=== PATIENT | male | born 1945 | race Caucasian/White ===

== ENCOUNTER → 2018-03-26 10:01 | Outpatient (CLI) | payer MEDICARE, OTHER, SELFPAY ==
[2018-03-26 10:36] LABS: Absolute Basophil Count 0.03 k/cumm (0.0-0.2); Absolute Eosinophil Count 0.16 k/cumm (0.0-0.7); Absolute Lymphocyte Count 0.76 k/cumm (1.2-3.4); Absolute Neutrophil Count 1.89 k/cumm (1.2-6.7); Eosinophils % 5.1; HGB 15.2 g/dL (13.5-17.5); Lymphocytes % 24.2; Mean Corp. HGB Concentration 33.8 g/dL (32.0-36.0); Mean Corpuscular Hemoglobin 30.6 pg (27.0-33.0); Mean Corpuscular Volume 90.5 fL (80-95); Mean Platelet Volume 9.2 fL (8.0-11.0); Monocytes % 9.6; Neutrophils % 60.1; Platelet Count 268 x1000/uL (130-400); RBC 4.97 m/cumm (4.50-6.00); White Blood Cell Count 3.14 k/cumm (4.4-10.8)
[2018-03-26 10:51] LABS: ALT 31 U/L (12-78); AST 19 U/L (15-37); Albumin 3.9 g/dL (3.4-5.0); Alkaline Phosphatase 112 U/L (46-116); BUN 19 mg/dL (7-18); Bilirubin, Total 0.5 mg/dL (0.2-1.0); CREATININE 0.91 mg/dL (0.70-1.30); Calcium 9.1 mg/dL (8.5-10.1); Chloride 102 mmol/L (98-107); Glucose 95 mg/dL (70-100); Potassium 4.6 mmol/L (3.5-5.1); Sodium 136 mmol/L (136-145); Total Protein 7.5 g/dL (6.4-8.2)
[2018-03-27 09:36] LABS: PSA, Diagnostic 60.6 ng/ml (0-6.5)
[2018-03-29 10:17] LABS: Testosterone, Total <7.0 ng/dL (240-950)
== END ==
PROVIDERS: PCP Family Medicine; Visit Provider Internal Medicine
DX: C61 Malignant neoplasm of prostate (principal)
CPT/HCPCS: 36415; 80053; 84403; 84153; 85025

== ENCOUNTER 2018-05-01 09:12 | Outpatient (CLI) | payer MEDICARE, OTHER, SELFPAY ==
[2018-05-01 09:43] LABS: Abs Immature Grans 0.01 k/cumm (0.0-0.09); Absolute Basophil Count 0.03 k/cumm (0.0-0.2); Absolute Eosinophil Count 0.13 k/cumm (0.0-0.7); Absolute Lymphocyte Count 0.45 k/cumm (1.2-3.4); Absolute Monocyte Count 0.24 k/cumm (0.11-0.7); Absolute Neutrophil Count 2.08 k/cumm (1.2-6.7); Eosinophils % 4.4; HCT 43.9 % (40.0-50.0); HGB 14.5 g/dL (13.5-17.5); Immature Grans % 0.3; Lymphocytes % 15.3; Mean Corpuscular Hemoglobin 30.5 pg (27.0-33.0); Mean Corpuscular Volume 92.4 fL (80-95); Mean Platelet Volume 8.8 fL (8.0-11.0); Monocytes % 8.2; Neutrophils % 70.8; Platelet Count 290 x1000/uL (130-400); RBC 4.75 m/cumm (4.50-6.00); RBC Distribution Width 15.7 % (11.8-14.1); White Blood Cell Count 2.94 k/cumm (4.4-10.8)
[2018-05-01 09:53] LABS: ALT 27 U/L (12-78); AST 19 U/L (15-37); Albumin 3.5 g/dL (3.4-5.0); Alkaline Phosphatase 97 U/L (46-116); Anion Gap 5.4 mmol/L (3-11); BUN 21 mg/dL (7-18); Bilirubin, Total 0.4 mg/dL (0.2-1.0); CO2 30.6 mmol/L (21.0-32.0); CREATININE 0.87 mg/dL (0.70-1.30); Calcium 9.2 mg/dL (8.5-10.1); Chloride 105 mmol/L (98-107); Glucose 123 mg/dL (70-100); Potassium 4.4 mmol/L (3.5-5.1); Sodium 141 mmol/L (136-145); Total Protein 7.1 g/dL (6.4-8.2)
[2018-05-02 09:31] LABS: PSA, Diagnostic 90.1 ng/ml (0-6.5)
[2018-05-04 01:17] LABS: Testosterone, Total <7.0 ng/dL (240-950)
== END 2018-05-01 09:32 ==
PROVIDERS: PCP Family Medicine; Visit Provider Internal Medicine
DX: C61 Malignant neoplasm of prostate (principal)
CPT/HCPCS: 36415; 80053; 84403; 84153; 85025

== ENCOUNTER 2018-06-11 11:41 | Outpatient (CLI) | payer MEDICARE, OTHER, SELFPAY ==
[2018-06-11 12:14] LABS: Abs Immature Grans 0.01 k/cumm (0.0-0.09); Absolute Basophil Count 0.05 k/cumm (0.0-0.2); Absolute Lymphocyte Count 0.64 k/cumm (1.2-3.4); Absolute Monocyte Count 0.34 k/cumm (0.11-0.7); Absolute Neutrophil Count 2.37 k/cumm (1.2-6.7); Basophils % 1.4; Eosinophils % 2.8; HCT 40.2 % (40.0-50.0); HGB 13.3 g/dL (13.5-17.5); Immature Grans % 0.3; Lymphocytes % 18.2; Mean Corp. HGB Concentration 33.1 g/dL (32.0-36.0); Mean Corpuscular Hemoglobin 31.1 pg (27.0-33.0); Mean Corpuscular Volume 93.9 fL (80-95); Mean Platelet Volume 8.8 fL (8.0-11.0); Monocytes % 9.7; Neutrophils % 67.6; Platelet Count 292 x1000/uL (130-400); RBC 4.28 m/cumm (4.50-6.00); RBC Distribution Width 15.3 % (11.8-14.1); White Blood Cell Count 3.51 k/cumm (4.4-10.8)
[2018-06-11 12:29] LABS: ALT 26 U/L (12-78); AST 16 U/L (15-37); Albumin 3.3 g/dL (3.4-5.0); Alkaline Phosphatase 89 U/L (46-116); Anion Gap 6.3 mmol/L (3-11); BUN 26 mg/dL (7-18); Bilirubin, Total 0.2 mg/dL (0.2-1.0); CO2 27.7 mmol/L (21.0-32.0); CREATININE 0.89 mg/dL (0.70-1.30); Chloride 104 mmol/L (98-107); Glucose 111 mg/dL (70-100); Potassium 4.2 mmol/L (3.5-5.1); Sodium 138 mmol/L (136-145); Total Protein 6.5 g/dL (6.4-8.2)
[2018-06-12 10:32] LABS: PSA, Diagnostic 131.3 ng/ml (0-6.5)
[2018-06-13 07:38] LABS: Testosterone, Total <7.0 ng/dL (240-950)
== END 2018-06-11 12:01 ==
PROVIDERS: Internal Medicine; PCP Family Medicine; Visit Provider Radiology Radiation Oncology
DX: C61 Malignant neoplasm of prostate (principal)
CPT/HCPCS: 36415; 80053; 84403; 84153; 85025

== ENCOUNTER 2018-06-29 10:27 | Outpatient (CLI) | payer MEDICARE, OTHER, SELFPAY ==
[2018-06-29 11:22] LABS: Absolute Basophil Count 0.03 k/cumm (0.0-0.2); Absolute Eosinophil Count 0.16 k/cumm (0.0-0.7); Absolute Lymphocyte Count 0.55 k/cumm (1.2-3.4); Absolute Monocyte Count 0.38 k/cumm (0.11-0.7); Absolute Neutrophil Count 1.75 k/cumm (1.2-6.7); Eosinophils % 5.6; HCT 42.2 % (40.0-50.0); HGB 13.8 g/dL (13.5-17.5); Lymphocytes % 19.2; Mean Corp. HGB Concentration 32.7 g/dL (32.0-36.0); Mean Corpuscular Hemoglobin 30.6 pg (27.0-33.0); Mean Corpuscular Volume 93.6 fL (80-95); Mean Platelet Volume 9.1 fL (8.0-11.0); Monocytes % 13.2; Platelet Count 270 x1000/uL (130-400); RBC 4.51 m/cumm (4.50-6.00); White Blood Cell Count 2.87 k/cumm (4.4-10.8)
[2018-06-29 12:42] LABS: ALT 32 U/L (12-78); AST 21 U/L (15-37); Albumin 3.6 g/dL (3.4-5.0); Alkaline Phosphatase 92 U/L (46-116); Anion Gap 7.4 mmol/L (3-11); BUN 23 mg/dL (7-18); Bilirubin, Total 0.4 mg/dL (0.2-1.0); CO2 28.6 mmol/L (21.0-32.0); CREATININE 0.88 mg/dL (0.70-1.30); Calcium 9.2 mg/dL (8.5-10.1); Chloride 102 mmol/L (98-107); Glucose 95 mg/dL (70-100); Potassium 4.8 mmol/L (3.5-5.1); Sodium 138 mmol/L (136-145); Total Protein 6.7 g/dL (6.4-8.2)
[2018-07-01 09:40] LABS: PSA, Diagnostic 160.5 ng/ml (0-6.5)
[2018-07-02 03:49] LABS: Testosterone, Total <7.0 ng/dL (240-950)
== END 2018-06-29 10:47 ==
PROVIDERS: PCP Family Medicine; Visit Provider Internal Medicine
DX: C61 Malignant neoplasm of prostate (principal)
CPT/HCPCS: 36415; 80053; 84403; 84153; 85025

== ENCOUNTER 2018-07-16 10:18 | Outpatient (CLI) | payer MEDICARE, OTHER, SELFPAY ==
[2018-07-16 10:40] LABS: Abs Immature Grans 0.01 k/cumm (0.0-0.09); Absolute Basophil Count 0.03 k/cumm (0.0-0.2); Absolute Eosinophil Count 0.11 k/cumm (0.0-0.7); Absolute Lymphocyte Count 0.61 k/cumm (1.2-3.4); Absolute Monocyte Count 0.39 k/cumm (0.11-0.7); Absolute Neutrophil Count 1.54 k/cumm (1.2-6.7); Basophils % 1.1; Eosinophils % 4.1; HCT 40.9 % (40.0-50.0); HGB 13.7 g/dL (13.5-17.5); Immature Grans % 0.4; Lymphocytes % 22.7; Mean Corp. HGB Concentration 33.5 g/dL (32.0-36.0); Mean Corpuscular Hemoglobin 31.6 pg (27.0-33.0); Mean Corpuscular Volume 94.5 fL (80-95); Mean Platelet Volume 8.7 fL (8.0-11.0); Monocytes % 14.5; Neutrophils % 57.2; Platelet Count 258 x1000/uL (130-400); RBC 4.33 m/cumm (4.50-6.00); RBC Distribution Width 14.6 % (11.8-14.1); White Blood Cell Count 2.69 k/cumm (4.4-10.8)
[2018-07-16 10:57] LABS: ALT 29 U/L (12-78); AST 18 U/L (15-37); Albumin 3.6 g/dL (3.4-5.0); Alkaline Phosphatase 85 U/L (46-116); Anion Gap 7.1 mmol/L (3-11); BUN 22 mg/dL (7-18); Bilirubin, Total 0.3 mg/dL (0.2-1.0); CO2 28.9 mmol/L (21.0-32.0); CREATININE 0.88 mg/dL (0.70-1.30); Calcium 9.1 mg/dL (8.5-10.1); Chloride 102 mmol/L (98-107); Glucose 100 mg/dL (70-100); Potassium 4.4 mmol/L (3.5-5.1); Sodium 138 mmol/L (136-145)
[2018-07-18 12:19] LABS: Testosterone, Total <7.0 ng/dL (240-950)
== END 2018-07-16 10:38 ==
PROVIDERS: Internal Medicine; PCP Family Medicine; Visit Provider Radiology Radiation Oncology
DX: C61 Malignant neoplasm of prostate (principal)
CPT/HCPCS: 36415; 80053; 84403; 84153; 85025

== ENCOUNTER 2018-08-26 11:54 | Outpatient (CLI) | payer MEDICARE, OTHER, SELFPAY ==
[2018-08-26 12:23] LABS: Absolute Basophil Count 0.03 k/cumm (0.0-0.2); Absolute Eosinophil Count 0.07 k/cumm (0.0-0.7); Absolute Lymphocyte Count 0.58 k/cumm (1.2-3.4); Absolute Monocyte Count 0.62 k/cumm (0.11-0.7); Absolute Neutrophil Count 3.41 k/cumm (1.2-6.7); Basophils % 0.6; Eosinophils % 1.5; HCT 40.3 % (40.0-50.0); HGB 13.3 g/dL (13.5-17.5); Lymphocytes % 12.3; Mean Corpuscular Hemoglobin 31.2 pg (27.0-33.0); Mean Corpuscular Volume 94.6 fL (80-95); Mean Platelet Volume 9.1 fL (8.0-11.0); Monocytes % 13.2; Neutrophils % 72.4; Platelet Count 256 x1000/uL (130-400); RBC 4.26 m/cumm (4.50-6.00); RBC Distribution Width 14.5 % (11.8-14.1); White Blood Cell Count 4.71 k/cumm (4.4-10.8)
[2018-08-26 12:57] LABS: ALT 28 U/L (12-78); AST 19 U/L (15-37); Albumin 3.7 g/dL (3.4-5.0); Alkaline Phosphatase 99 U/L (46-116); Anion Gap 8.2 mmol/L (3-11); BUN 19 mg/dL (7-18); Bilirubin, Total 0.4 mg/dL (0.2-1.0); CO2 28.8 mmol/L (21.0-32.0); CREATININE 0.89 mg/dL (0.70-1.30); Calcium 9.2 mg/dL (8.5-10.1); Chloride 102 mmol/L (98-107); Glucose 98 mg/dL (70-100); Potassium 4.4 mmol/L (3.5-5.1); Sodium 139 mmol/L (136-145); Total Protein 6.9 g/dL (6.4-8.2)
[2018-08-29 02:43] LABS: Testosterone, Total <7.0 ng/dL (240-950)
== END 2018-08-26 12:14 ==
PROVIDERS: PCP Family Medicine; Visit Provider Radiology Radiation Oncology
DX: C61 Malignant neoplasm of prostate (principal)
CPT/HCPCS: 36415; 80053; 84403; 84153; 85025

== ENCOUNTER 2018-09-24 01:20 | Outpatient (CLI) | payer MEDICARE, OTHER, SELFPAY ==
--- NOTE | 2018-09-24 08:45 | DI.CT_ITS ---
SYMPTOMS/DIAGNOSIS: RESTAGING METASTATIC PROSTATE CA, C61 CT OF THE CHEST, ABDOMEN AND PELVIS: Comparison is made with [id number]. CHEST CT: There is biapical scarring and emphysematous changes which appear stable. No pulmonary nodules, adenopathy, infiltrates or effusions are seen. Widespread bony metastases are again noted, within the ribs and spine. IMPRESSION: Bony metastases. No evidence of pulmonary metastases or adenopathy. ABDOMEN AND PELVIC CT: Numerous lytic lesions are again noted in the pelvis and spine. No compression fractures are seen. There are degenerative disc changes and degenerative facet changes. The liver, spleen, gallbladder, adrenals, pancreas and kidneys are unremarkable. There is no bowel dilatation or inflammatory change. There are now multiple small left para-aortic lymph nodes, not seen on the previous exam. They are located in the infrarenal location. The nodes range in size up to 12 mm. There are a few tiny mesenteric lymph nodes. No pelvic lymph nodes are identified. There is no evidence of ascites. IMPRESSION: New left para-aortic adenopathy. Tiny mesenteric lymph nodes appear unchanged. Widespread bony metastases.
[2018-09-24 09:16] LABS: Abs Immature Grans 0.01 k/cumm (0.0-0.09); Absolute Basophil Count 0.03 k/cumm (0.0-0.2); Absolute Eosinophil Count 0.11 k/cumm (0.0-0.7); Absolute Lymphocyte Count 0.53 k/cumm (1.2-3.4); Absolute Monocyte Count 0.29 k/cumm (0.11-0.7); Absolute Neutrophil Count 2.52 k/cumm (1.2-6.7); Basophils % 0.9; Eosinophils % 3.2; HCT 40.6 % (40.0-50.0); HGB 13.5 g/dL (13.5-17.5); Immature Grans % 0.3; Lymphocytes % 15.2; Mean Corp. HGB Concentration 33.3 g/dL (32.0-36.0); Mean Corpuscular Hemoglobin 31.3 pg (27.0-33.0); Monocytes % 8.3; Neutrophils % 72.1; Platelet Count 265 x1000/uL (130-400); RBC 4.32 m/cumm (4.50-6.00); RBC Distribution Width 14.3 % (11.8-14.1); White Blood Cell Count 3.49 k/cumm (4.4-10.8)
[2018-09-24 09:28] LABS: ALT 23 U/L (12-78); AST 21 U/L (15-37); Albumin 3.4 g/dL (3.4-5.0); Alkaline Phosphatase 104 U/L (46-116); Anion Gap 7.8 mmol/L (3-11); BUN 20 mg/dL (7-18); Bilirubin, Total 0.3 mg/dL (0.2-1.0); CO2 29.2 mmol/L (21.0-32.0); Calcium 9.5 mg/dL (8.5-10.1); Chloride 103 mmol/L (98-107); Glucose 105 mg/dL (70-100); Potassium 4.7 mmol/L (3.5-5.1); Sodium 140 mmol/L (136-145); Total Protein 7.4 g/dL (6.4-8.2)
[2018-09-24] MEDS: Omnipaque 350 MG/ML 50 ML BTL IJ (10:48)
[2018-09-24] MEDS: Breeza Beverage 473 ML BTL PO (10:50)
[2018-09-24] MEDS: Omnipaque 350 MG/ML 100 ML BTL IJ (10:51)
--- NOTE | 2018-09-24 11:57 | DI.NM_ITS ---
SYMPTOMS/DIAGNOSIS: RESTAGING OF METASTATIC PROSTATE CA, C61 WHOLE BODY BONE SCAN: Comparison is made with [id number]. 26.7 millicuries of Technetium 99 M MDP were administered IV. Numerous foci of abnormally increased activity is seen in the cervical, thoracic and lumbar spine as well as multiple ribs. Multiple abnormal pelvic lesions are seen. There is abnormal activity in both proximal femurs as well as in the right humerus. The amount of abnormal bony labeling appears to have increased slightly when compared with the previous exam. A left knee prosthesis is again noted. IMPRESSION: Increasing bony metastases particularly involving the bilateral ribs.
[2018-09-25 09:58] LABS: PSA, Diagnostic 905.4 ng/ml (0-6.5)
[2018-09-27 14:22] LABS: Testosterone, Total <7.0 ng/dL (240-950)
== END 2018-09-24 01:40 ==
PROVIDERS: PCP Family Medicine; Visit Provider Internal Medicine
DX: C61 Malignant neoplasm of prostate (principal); C79.51 Secondary malignant neoplasm of bone; J98.4 Other disorders of lung; R59.0 Localized enlarged lymph nodes; Z12.89 Encounter for screening for malignant neoplasm of other sites
CPT/HCPCS: 36415; 74177; 78306; 80053; 84403; 71260; 84153; 85025; J3490; Q9967

== ENCOUNTER 2018-10-10 11:29 | Outpatient (CLI) | payer MEDICARE, OTHER, SELFPAY ==
[2018-10-10 12:24] LABS: Abs Immature Grans 0.01 k/cumm (0.0-0.09); Absolute Basophil Count 0.03 k/cumm (0.0-0.2); Absolute Eosinophil Count 0.06 k/cumm (0.0-0.7); Absolute Lymphocyte Count 0.55 k/cumm (1.2-3.4); Absolute Monocyte Count 0.48 k/cumm (0.11-0.7); Basophils % 0.7; Eosinophils % 1.5; HCT 38.9 % (40.0-50.0); HGB 12.7 g/dL (13.5-17.5); Immature Grans % 0.2; Lymphocytes % 13.6; Mean Corp. HGB Concentration 32.6 g/dL (32.0-36.0); Mean Corpuscular Hemoglobin 30.5 pg (27.0-33.0); Mean Corpuscular Volume 93.5 fL (80-95); Mean Platelet Volume 8.8 fL (8.0-11.0); Monocytes % 11.9; Neutrophils % 72.1; Platelet Count 271 x1000/uL (130-400); RBC 4.16 m/cumm (4.50-6.00); RBC Distribution Width 14.5 % (11.8-14.1); White Blood Cell Count 4.03 k/cumm (4.4-10.8)
[2018-10-10 12:27] LABS: Absolute Neutrophil Count 2.91 k/cumm (1.2-6.7)
[2018-10-10 12:57] LABS: ALT 21 U/L (12-78); AST 18 U/L (15-37); Albumin 3.3 g/dL (3.4-5.0); Alkaline Phosphatase 104 U/L (46-116); Anion Gap 8.5 mmol/L (3-11); BUN 23 mg/dL (7-18); Bilirubin, Total 0.3 mg/dL (0.2-1.0); CO2 30.5 mmol/L (21.0-32.0); CREATININE 0.94 mg/dL (0.70-1.30); Calcium 9.5 mg/dL (8.5-10.1); Chloride 103 mmol/L (98-107); Glucose 118 mg/dL (70-100); Potassium 4.4 mmol/L (3.5-5.1); Sodium 142 mmol/L (136-145); Total Protein 6.8 g/dL (6.4-8.2)
[2018-10-11 11:28] LABS: PSA, Diagnostic 986.8 ng/ml (0-6.5)
[2018-10-14 23:49] LABS: Testosterone, Total <7.0 ng/dL (240-950)
== END 2018-10-10 11:49 ==
PROVIDERS: PCP Family Medicine; Visit Provider Radiology Radiation Oncology
DX: C61 Malignant neoplasm of prostate (principal)
CPT/HCPCS: 36415; 80053; 84403; 84153; 85025

== ENCOUNTER 2018-11-09 09:02 | Outpatient (CLI) | payer MEDICARE, OTHER, SELFPAY ==
[2018-11-09 09:38] LABS: Abs Immature Grans 0.02 k/cumm (0.0-0.09); Absolute Basophil Count 0.03 k/cumm (0.0-0.2); Absolute Eosinophil Count 0.02 k/cumm (0.0-0.7); Absolute Lymphocyte Count 0.53 k/cumm (1.2-3.4); Absolute Monocyte Count 0.68 k/cumm (0.11-0.7); Basophils % 0.6; Eosinophils % 0.4; HCT 35.5 % (40.0-50.0); HGB 11.6 g/dL (13.5-17.5); Immature Grans % 0.4; Lymphocytes % 11.3; Mean Corp. HGB Concentration 32.7 g/dL (32.0-36.0); Mean Corpuscular Hemoglobin 30.5 pg (27.0-33.0); Mean Corpuscular Volume 93.4 fL (80-95); Mean Platelet Volume 9.2 fL (8.0-11.0); Monocytes % 14.5; Neutrophils % 72.8; Platelet Count 302 x1000/uL (130-400); White Blood Cell Count 4.68 k/cumm (4.4-10.8)
[2018-11-09 10:13] LABS: ALT 22 U/L (12-78); AST 17 U/L (15-37); Albumin 3.4 g/dL (3.4-5.0); Alkaline Phosphatase 122 U/L (46-116); Anion Gap 8.4 mmol/L (3-11); BUN 21 mg/dL (7-18); Bilirubin, Total 0.3 mg/dL (0.2-1.0); CO2 26.6 mmol/L (21.0-32.0); CREATININE 0.91 mg/dL (0.70-1.30); Chloride 104 mmol/L (98-107); Glucose 83 mg/dL (70-100); Potassium 4.5 mmol/L (3.5-5.1); Sodium 139 mmol/L (136-145); Total Protein 6.5 g/dL (6.4-8.2)
[2018-11-12 23:12] LABS: Testosterone, Total <7.0 ng/dL (240-950)
== END 2018-11-09 09:22 ==
PROVIDERS: PCP General Practice; Visit Provider Internal Medicine
DX: C61 Malignant neoplasm of prostate (principal)
CPT/HCPCS: 36415; 80053; 84403; 84153; 85025

== ENCOUNTER 2018-11-29 11:59 | Outpatient (CLI) | payer MEDICARE, OTHER, SELFPAY ==
[2018-11-29 12:20] LABS: Abs Immature Grans 0.06 k/cumm (0.0-0.09); Absolute Basophil Count 0.03 k/cumm (0.0-0.2); Absolute Eosinophil Count 0.03 k/cumm (0.0-0.7); Absolute Lymphocyte Count 0.62 k/cumm (1.2-3.4); Absolute Monocyte Count 0.68 k/cumm (0.11-0.7); Absolute Neutrophil Count 5.04 k/cumm (1.2-6.7); Basophils % 0.5; Eosinophils % 0.5; HCT 34.9 % (40.0-50.0); HGB 11.3 g/dL (13.5-17.5); Immature Grans % 0.9; Lymphocytes % 9.6; Mean Corp. HGB Concentration 32.4 g/dL (32.0-36.0); Mean Corpuscular Hemoglobin 30.6 pg (27.0-33.0); Mean Corpuscular Volume 94.6 fL (80-95); Monocytes % 10.5; Platelet Count 277 x1000/uL (130-400); RBC 3.69 m/cumm (4.50-6.00); RBC Distribution Width 18.1 % (11.8-14.1); White Blood Cell Count 6.46 k/cumm (4.4-10.8)
[2018-11-29 12:34] LABS: Anisocytosis 2+; Diff Comment RBC Morph Reviewed; Polychromasia Present
[2018-11-29 13:28] LABS: ALT 20 U/L (12-78); AST 17 U/L (15-37); Albumin 3.4 g/dL (3.4-5.0); Alkaline Phosphatase 159 U/L (46-116); Anion Gap 8.8 mmol/L (3-11); BUN 18 mg/dL (7-18); Bilirubin, Total 0.2 mg/dL (0.2-1.0); CO2 28.2 mmol/L (21.0-32.0); CREATININE 0.73 mg/dL (0.70-1.30); Chloride 103 mmol/L (98-107); Glucose 106 mg/dL (70-100); Potassium 4.4 mmol/L (3.5-5.1); Sodium 140 mmol/L (136-145); Total Protein 6.5 g/dL (6.4-8.2)
[2018-12-03 03:58] LABS: Testosterone, Total <7.0 ng/dL (240-950)
[2018-12-03 13:14] LABS: PSA, Diagnostic 1044.2 ng/ml (0-6.5)
== END 2018-11-29 12:19 ==
PROVIDERS: PCP General Practice; Visit Provider Internal Medicine
DX: C61 Malignant neoplasm of prostate (principal)
CPT/HCPCS: 36415; 80053; 84403; 84153; 85025

== ENCOUNTER 2018-12-20 10:03 | Outpatient (CLI) | payer MEDICARE, OTHER, SELFPAY ==
[2018-12-20 10:40] LABS: Abs Immature Grans 0.08 k/cumm (0.0-0.09); Absolute Basophil Count 0.04 k/cumm (0.0-0.2); Absolute Eosinophil Count 0.03 k/cumm (0.0-0.7); Absolute Lymphocyte Count 0.63 k/cumm (1.2-3.4); Absolute Monocyte Count 0.62 k/cumm (0.11-0.7); Absolute Neutrophil Count 5.39 k/cumm (1.2-6.7); Basophils % 0.6; Eosinophils % 0.4; HCT 36.2 % (40.0-50.0); HGB 11.7 g/dL (13.5-17.5); Immature Grans % 1.2; Lymphocytes % 9.3; Mean Corp. HGB Concentration 32.3 g/dL (32.0-36.0); Mean Corpuscular Hemoglobin 31.1 pg (27.0-33.0); Mean Corpuscular Volume 96.3 fL (80-95); Mean Platelet Volume 8.9 fL (8.0-11.0); Monocytes % 9.1; Neutrophils % 79.4; Platelet Count 318 x1000/uL (130-400); RBC 3.76 m/cumm (4.50-6.00); RBC Distribution Width 20.5 % (11.8-14.1); White Blood Cell Count 6.79 k/cumm (4.4-10.8)
[2018-12-20 11:12] LABS: Anisocytosis 2+; Diff Comment RBC Morph Reviewed; Hypochromasia 2+; Polychromasia Present
[2018-12-20 11:32] LABS: ALT 25 U/L (12-78); AST 19 U/L (15-37); Albumin 3.6 g/dL (3.4-5.0); Alkaline Phosphatase 180 U/L (46-116); Anion Gap 7.5 mmol/L (3-11); BUN 21 mg/dL (7-18); Bilirubin, Total 0.3 mg/dL (0.2-1.0); CO2 29.5 mmol/L (21.0-32.0); CREATININE 0.85 mg/dL (0.70-1.30); Calcium 9.1 mg/dL (8.5-10.1); Chloride 104 mmol/L (98-107); Glucose 112 mg/dL (70-100); Potassium 4.4 mmol/L (3.5-5.1); Sodium 141 mmol/L (136-145); Total Protein 6.8 g/dL (6.4-8.2)
[2018-12-24 00:03] LABS: Testosterone, Total <7.0 ng/dL (240-950)
== END 2018-12-20 10:23 ==
PROVIDERS: PCP General Practice; Visit Provider Internal Medicine
DX: C61 Malignant neoplasm of prostate (principal)
CPT/HCPCS: 36415; 80053; 84403; 84153; 85025

== ENCOUNTER 2018-12-27 11:46 | Outpatient (CLI) | payer MEDICARE, OTHER, SELFPAY ==
[2018-12-27 12:13] LABS: Abs Immature Grans 0.01 k/cumm (0.0-0.09); Absolute Basophil Count 0.02 k/cumm (0.0-0.2); Absolute Eosinophil Count 0.02 k/cumm (0.0-0.7); Absolute Lymphocyte Count 0.34 k/cumm (1.2-3.4); Absolute Monocyte Count 0.46 k/cumm (0.11-0.7); Absolute Neutrophil Count 4.14 k/cumm (1.2-6.7); Basophils % 0.4; Eosinophils % 0.4; HCT 35.3 % (40.0-50.0); HGB 11.5 g/dL (13.5-17.5); Immature Grans % 0.2; Lymphocytes % 6.8; Mean Corp. HGB Concentration 32.6 g/dL (32.0-36.0); Mean Corpuscular Hemoglobin 31.6 pg (27.0-33.0); Mean Platelet Volume 8.4 fL (8.0-11.0); Monocytes % 9.2; Platelet Count 315 x1000/uL (130-400); RBC 3.64 m/cumm (4.50-6.00); RBC Distribution Width 20.5 % (11.8-14.1); White Blood Cell Count 4.99 k/cumm (4.4-10.8)
[2018-12-27 12:26] LABS: ALT 27 U/L (12-78); AST 19 U/L (15-37); Albumin 3.6 g/dL (3.4-5.0); Alkaline Phosphatase 155 U/L (46-116); Anion Gap 8.8 mmol/L (3-11); BUN 18 mg/dL (7-18); Bilirubin, Total 0.2 mg/dL (0.2-1.0); CO2 27.2 mmol/L (21.0-32.0); CREATININE 0.75 mg/dL (0.70-1.30); Chloride 101 mmol/L (98-107); Glucose 112 mg/dL (70-100); Potassium 4.7 mmol/L (3.5-5.1); Sodium 137 mmol/L (136-145); Total Protein 7.1 g/dL (6.4-8.2)
[2018-12-27 12:28] LABS: Anisocytosis 1+; Diff Comment RBC Morph Reviewed
[2018-12-30 12:35] LABS: PSA, Diagnostic 959.6 ng/ml (0-6.5)
[2018-12-31 07:51] LABS: Testosterone, Total <7.0 ng/dL (240-950)
== END 2018-12-27 12:06 ==
PROVIDERS: PCP General Practice; Visit Provider Internal Medicine
DX: C61 Malignant neoplasm of prostate (principal)
CPT/HCPCS: 36415; 80053; 84403; 84153; 85025

== ENCOUNTER 2018-12-29 21:12 | Outpatient (REF) | payer MEDICARE, OTHER, SELFPAY ==
[2018-12-31 11:38] LABS: Campylobacter PCR SEE COMMENTS; Salmonella PCR SEE COMMENTS; Shiga Toxin PCR SEE COMMENTS; Shigella/Enteroinvasive Ecoli SEE COMMENTS
== END 2018-12-29 21:32 ==
LOC: LBN 21:12
PROVIDERS: PCP General Practice; Visit Provider Internal Medicine
DX: K52.1 Toxic gastroenteritis and colitis (principal); T45.1X5A Adverse effect of antineoplastic and immunosuppressive drugs, initial encounter
CPT/HCPCS: 87505; 87324

== ENCOUNTER 2019-01-17 10:04 | Outpatient (CLI) | payer MEDICARE, OTHER, SELFPAY ==
[2019-01-17 10:25] LABS: Abs Immature Grans 0.06 k/cumm (0.0-0.09); Absolute Basophil Count 0.03 k/cumm (0.0-0.2); Absolute Eosinophil Count 0.01 k/cumm (0.0-0.7); Absolute Lymphocyte Count 0.58 k/cumm (1.2-3.4); Absolute Monocyte Count 0.61 k/cumm (0.11-0.7); Basophils % 0.5; Eosinophils % 0.2; HCT 34.1 % (40.0-50.0); HGB 11.1 g/dL (13.5-17.5); Immature Grans % 0.9; Lymphocytes % 8.9; Mean Corp. HGB Concentration 32.6 g/dL (32.0-36.0); Mean Corpuscular Hemoglobin 32.3 pg (27.0-33.0); Mean Corpuscular Volume 99.1 fL (80-95); Mean Platelet Volume 8.7 fL (8.0-11.0); Monocytes % 9.4; Neutrophils % 80.1; Platelet Count 280 x1000/uL (130-400); RBC 3.44 m/cumm (4.50-6.00); RBC Distribution Width 19.8 % (11.8-14.1); White Blood Cell Count 6.49 k/cumm (4.4-10.8)
[2019-01-17 11:23] LABS: ALT 24 U/L (12-78); AST 16 U/L (15-37); Albumin 3.4 g/dL (3.4-5.0); Alkaline Phosphatase 170 U/L (46-116); Anion Gap 9.3 mmol/L (3-11); BUN 16 mg/dL (7-18); Bilirubin, Total 0.2 mg/dL (0.2-1.0); CO2 27.7 mmol/L (21.0-32.0); CREATININE 0.76 mg/dL (0.70-1.30); Calcium 8.8 mg/dL (8.5-10.1); Chloride 103 mmol/L (98-107); Glucose 98 mg/dL (70-100); Potassium 4.2 mmol/L (3.5-5.1); Sodium 140 mmol/L (136-145); Total Protein 6.4 g/dL (6.4-8.2)
[2019-01-20 10:55] LABS: PSA, Diagnostic 853.4 ng/ml (0-6.5)
[2019-01-21 03:40] LABS: Testosterone, Total <7.0 ng/dL (240-950)
== END 2019-01-17 10:24 ==
PROVIDERS: PCP General Practice; Visit Provider Radiology Radiation Oncology
DX: C61 Malignant neoplasm of prostate (principal)
CPT/HCPCS: 36415; 80053; 84403; 84153; 85025

== ENCOUNTER 2019-01-28 01:07 | Outpatient (CLI) | payer MEDICARE, OTHER, SELFPAY ==
--- NOTE | 2019-01-28 09:30 | DI.CT_ITS ---
SYMPTOMS/DIAGNOSIS: METASTATIC PROSTATE CA, C61, RESTAGING EXAM CT OF THE CHEST, ABDOMEN AND PELVIS: The study was carried out with an intravenous administration of 100 cc's of Omnipaque 350 and oral ingestion of dilute Omnipaque. The examination is compared with the previous study of 09/24/18. Again noted are the findings consistent with COPD. Apical pleural scarring is again noted as well. There is no evidence of a pulmonary nodule. There is no evidence of adenopathy. Diffuse bony metastases are again demonstrated without gross interval change. The liver is unremarkable. The gallbladder, pancreas, spleen and kidneys are normal. When compared with the prior study again noted are left periaortic lymph nodes unchanged in size. There is no evidence of pelvic adenopathy. The bladder is intact. There is no evidence of free fluid in the abdomen or pelvis. There is no evidence of an aortic aneurysm. Diffuse bony metastases involving the lumbar spine, pelvis and hips is identified. SUMMARY: Again noted are diffuse bony metastases. Previously identified left para-aortic lymph nodes are unchanged.
[2019-01-28] MEDS: Breeza Beverage 473 ML BTL PO (10:40)
[2019-01-28] MEDS: Omnipaque 350 MG/ML 50 ML BTL IJ (10:41)
[2019-01-28] MEDS: Omnipaque 350 MG/ML 100 ML BTL IJ (10:42)
--- NOTE | 2019-01-28 12:13 | DI.NM_ITS ---
SYMPTOMS/DIAGNOSIS: METASTATIC PROSTATE CA, C61, RESTAGING BONE SCAN: The study was carried out with an intravenous administration of 24.6 mCi of technetium 99 MDP and is compared with the prior study of 09/24/2018. Again noted are multiple regions of increased photon density in the ribs and axial skeleton. Also, involvement of the pelvic bones is demonstrated. There is in addition activity in the proximal femora. SUMMARY: No appreciable interval change when compared with the prior examination. Innumerable bony metastases are demonstrated. No new lesions are seen.
== END 2019-01-28 01:27 ==
PROVIDERS: PCP General Practice; Visit Provider Internal Medicine
DX: C61 Malignant neoplasm of prostate (principal); C79.51 Secondary malignant neoplasm of bone
CPT/HCPCS: 74177; 78306; 80053; 84403; 71260; 84153; 85025; J3490; Q9967

== ENCOUNTER 2019-02-07 11:11 | Outpatient (CLI) | payer MEDICARE, OTHER, SELFPAY ==
[2019-02-07 11:50] LABS: Abs Immature Grans 0.04 k/cumm (0.0-0.09); Absolute Basophil Count 0.03 k/cumm (0.0-0.2); Absolute Eosinophil Count 0.12 k/cumm (0.0-0.7); Absolute Lymphocyte Count 0.58 k/cumm (1.2-3.4); Absolute Monocyte Count 0.52 k/cumm (0.11-0.7); Absolute Neutrophil Count 5.12 k/cumm (1.2-6.7); Basophils % 0.5; Eosinophils % 1.9; HCT 35.3 % (40.0-50.0); HGB 11.3 g/dL (13.5-17.5); Immature Grans % 0.6; Mean Corpuscular Hemoglobin 32.2 pg (27.0-33.0); Mean Corpuscular Volume 100.6 fL (80-95); Mean Platelet Volume 8.8 fL (8.0-11.0); Monocytes % 8.1; Neutrophils % 79.9; Platelet Count 310 x1000/uL (130-400); RBC 3.51 m/cumm (4.50-6.00); RBC Distribution Width 19.3 % (11.8-14.1); White Blood Cell Count 6.41 k/cumm (4.4-10.8)
[2019-02-07 12:35] LABS: ALT 23 U/L (12-78); AST 16 U/L (15-37); Albumin 3.5 g/dL (3.4-5.0); Alkaline Phosphatase 187 U/L (46-116); Anion Gap 9.9 mmol/L (3-11); BUN 21 mg/dL (7-18); Bilirubin, Total 0.2 mg/dL (0.2-1.0); CO2 27.1 mmol/L (21.0-32.0); CREATININE 0.81 mg/dL (0.70-1.30); Chloride 105 mmol/L (98-107); Glucose 105 mg/dL (70-100); Potassium 4.5 mmol/L (3.5-5.1); Sodium 142 mmol/L (136-145); Total Protein 6.4 g/dL (6.4-8.2)
[2019-02-10 13:25] LABS: PSA, Diagnostic 823.6 ng/ml (0-6.5)
[2019-02-11 08:57] LABS: Testosterone, Total <7.0 ng/dL (240-950)
== END 2019-02-07 11:31 ==
PROVIDERS: PCP General Practice; Visit Provider Internal Medicine
DX: C61 Malignant neoplasm of prostate (principal)
CPT/HCPCS: 36415; 80053; 84403; 84153; 85025

== ENCOUNTER 2019-02-28 16:15 | Outpatient (CLI) | payer MEDICARE, OTHER, SELFPAY ==
[2019-02-28 16:41] LABS: Abs Immature Grans 0.02 k/cumm (0.0-0.09); Absolute Basophil Count 0.02 k/cumm (0.0-0.2); Absolute Lymphocyte Count 0.38 k/cumm (1.2-3.4); Absolute Monocyte Count 0.38 k/cumm (0.11-0.7); Basophils % 0.3; HCT 34.4 % (40.0-50.0); HGB 11.4 g/dL (13.5-17.5); Immature Grans % 0.3; Lymphocytes % 5.8; Mean Corp. HGB Concentration 33.1 g/dL (32.0-36.0); Mean Corpuscular Hemoglobin 33.5 pg (27.0-33.0); Mean Corpuscular Volume 101.2 fL (80-95); Mean Platelet Volume 8.2 fL (8.0-11.0); Monocytes % 5.8; Neutrophils % 87.8; Platelet Count 266 x1000/uL (130-400); RBC Distribution Width 17.4 % (11.8-14.1)
== END 2019-02-28 16:35 ==
PROVIDERS: PCP General Practice; Visit Provider Internal Medicine
DX: C61 Malignant neoplasm of prostate (principal)
CPT/HCPCS: 36415; 85025

== ENCOUNTER 2019-03-04 10:53 | Outpatient (CLI) | payer MEDICARE, OTHER, SELFPAY ==
[2019-03-04 11:37] LABS: Abs Immature Grans 0.01 k/cumm (0.0-0.09); Absolute Basophil Count 0.02 k/cumm (0.0-0.2); Absolute Eosinophil Count 0.01 k/cumm (0.0-0.7); Absolute Lymphocyte Count 0.45 k/cumm (1.2-3.4); Absolute Neutrophil Count 4.07 k/cumm (1.2-6.7); Basophils % 0.4; Eosinophils % 0.2; HCT 36.3 % (40.0-50.0); HGB 11.9 g/dL (13.5-17.5); Immature Grans % 0.2; Lymphocytes % 8.9; Mean Corp. HGB Concentration 32.8 g/dL (32.0-36.0); Mean Corpuscular Volume 100.6 fL (80-95); Mean Platelet Volume 8.7 fL (8.0-11.0); Monocytes % 9.9; Neutrophils % 80.4; Platelet Count 263 x1000/uL (130-400); RBC 3.61 m/cumm (4.50-6.00); RBC Distribution Width 17.2 % (11.8-14.1); White Blood Cell Count 5.06 k/cumm (4.4-10.8)
[2019-03-04 11:55] LABS: ALT 23 U/L (12-78); AST 16 U/L (15-37); Albumin 3.3 g/dL (3.4-5.0); Alkaline Phosphatase 171 U/L (46-116); Anion Gap 11.2 mmol/L (3-11); BUN 22 mg/dL (7-18); Bilirubin, Total 0.2 mg/dL (0.2-1.0); CO2 24.8 mmol/L (21.0-32.0); CREATININE 0.62 mg/dL (0.70-1.30); Chloride 105 mmol/L (98-107); Glucose 93 mg/dL (70-100); Potassium 4.1 mmol/L (3.5-5.1); Sodium 141 mmol/L (136-145); Total Protein 6.7 g/dL (6.4-8.2)
[2019-03-07 15:03] LABS: Testosterone, Total <7.0 ng/dL (240-950)
== END 2019-03-04 11:13 ==
PROVIDERS: PCP General Practice; Visit Provider Radiology Radiation Oncology
DX: C61 Malignant neoplasm of prostate (principal)
CPT/HCPCS: 36415; 80053; 84403; 84153; 85025

== ENCOUNTER 2019-03-24 10:10 | Emergency (ER) | payer MEDICARE, OTHER, SELFPAY ==
[2019-03-24 10:15] VITALS: BP 120/65; PULSE 54; RESP 18; TEMP 36.3; O2SAT 98
--- NOTE | 2019-03-24 10:23 | DI.RAD_ITS ---
SYMPTOMS/DIAGNOSIS: PAIN AFTER FALL LEFT HAND: No fracture or dislocation is seen. Degenerative changes are noted greatest in the interphalangeal joints of the fingers. IMPRESSION: No acute abnormality. LEFT SHOULDER: No fracture or dislocation is seen. There are degenerative changes of the glenohumeral joint and AC joint. The bones have a mottled appearance. IMPRESSION: Mottled appearance of the bones consistent with patient's known history of metastatic prostate cancer. No acute abnormality. PA AND LATERAL CHEST AND LEFT RIBS: No fracture or pneumothorax is seen. The heart size is normal. The bones have a mixed lytic/sclerotic appearance consistent with known bony metastases. No infiltrates, effusions or pneumothorax is seen. IMPRESSION: Bone metastases. No acute abnormality.
--- NOTE | 2019-03-24 10:24 | W.ED.GENAD ---
Discharge Plan Disposition Patient Disposition: HOME Condition: Fair Discharge Details Chief Complaint: Orthopedic Clinical Impression: Metastatic cancer to bone, Multiple contusions Primary Care Provider: Emigdio Gunn ED Provider: Terrie Vivas Home Meds and New Rx's Prescriptions: New oxycodone 5 mg tablet 5 mg PO Q6H PRN (Reason: pain) Qty: 10 RF: 0 Narcan 4 mg/actuation spray,non-aerosol 1 spray THIAGO ONCE PRN (Reason: opioid overdose) Qty: 2 RF: 0 lidocaine [Lidoderm] 5 % adhesive patch,medicated 1 patch TP DAILY Qty: 15 RF: 0 Continued acetaminophen [Acetaminophen Extra Strength] 500 mg tablet 500 mg PO Q6H PRNRF: 0 nitroglycerin 0.4 mg tablet, sublingual 0.4 mg SL Q5-15M PRN (Reason: chest pain) Qty: 10 RF: 1 prednisone 10 mg tablet 10 mg PO DAILY RF: 0 loperamide [Imodium A-D] 2 mg capsule 2 mg PO Q1-4H PRNRF: 0 cabazitaxel 10 mg/mL (first dilution) solution IV RF: 0 carboplatin 10 mg/mL solution IV RF: 0 Lupron Depot 7.5 MG syringe kit 7.5 mg IM ONCE RF: 0 ibuprofen [IBU-200] 200 mg Tablet 400 mg PO Q6H PRNRF: 0 Discharge Instructions Instructions: Contusion in Adults (ED) Additional Instructions: The shoulder x-ray today is concerning for possible metastasis to this shoulder. You also have contusions from your fall. Please encourage rest, ice, elevation. Tylenol and/or ibuprofen as needed for discomfort. Topical patches as prescribed, these are also available over the counter. If these are unsuccessful at alleviating your pain, please augment with oxycodone as prescribed. Keep these medications in a safe place and use only as directed, do not drive while taking this medication. medical review coordinator and palliative care physician will be in contact with you regarding follow up. Please call office tomorrow if you do not hear from them, number listed below. Physical therapy referral attached to help with strengthening and range of motion of your shoulder. If you develop fevers/chills, increased pain or other new/worsening symptoms please seek care urgently once again. Stand Alone Forms: Physical Therapy Referral Referrals: Emigdio Gunn MD [Primary Care Provider] - Etta Ventura MD [MD [facility] STAFF PHYSICIAN] - Medical Decision Making Patient is a 74 year old male presenting today with c/c of left shoulder pain after fall one week ago. States that he fell one week ago. Has known bone ca but is unclear where the metastesis is located. States that secondary to old back injury, he has chronic neuropathy and foot drop. Reports this is unchanged, fell associated with this foot drop. Reports that he falls very rarily but this can trip him up on uneven ground. Did not strike his head, no LOC. Denies fevers/chills. No recent travel. States that at the time of the fall he also injured his left chest wall. Pain worse with coughing/sneezing. States that this has been improving over the past few days. Reports chronic pain in his left hand worsened with fall. Reports that left shoulder pain radiates down the LUE with pain into the elbow. Pain much worse with ROM, diminished FE. Full ER, limited IR. Lungs clear. Patient has a known cardiac murmur noted on exam. Left hand diffusely tender. No focal findings, pulses intact. Sensation diminished but patietn reports this is chronic. No head trauma, no neck or back pain on exam. Reviewed XR , concerned for heterogenity to the left humerus. Spoke with radiologist who agrees this is likely evidence of metastesis. No acute bony abnrmality. She reports no acute abnormality to the chest. Discussed findinsg with the patient. Plan to refer to PT for LUE pain and diminished ROM. ADvised on daily ROM activities. Patient has been offered narcotics historically but declined as he has a son living with him that has narcotic addiction. Will speak with primary health care nurse regarding living situation and consult with palliative regarding pain management as this will likely be chronic Spoke with primary health care nurse who will speak with palliative care physician, I am awaiting call back at this time. Patient prescribed oxycodone for his pain likely associated with the metastesis to his humeral head. Will keep this in a safe place. Also prescribed narcan. He is feeling much improved after tylenol, ibuprofen and lidoderm patch. Able to push himself up in the bed with affected arm. Will refer to PT to help with ADLS and ROM. Discussed new/worsening symptoms and when to seek care rugently once again. All of his quesitons and concerns were addressed, he is in agreement with this plan. Consulted with Dr. Kohli who will f/u with patient. HPI General Mode of arrival: ambulatory. Date/Time Provider Initiated Documentation: 03/24/19 10:10. Limitations to Documentation: no limitations. Information obtained by: patient and RN notes reviewed. History of Present Illness 74 year old M presents to the emergency department with the chief complaint of left shoulder pain, described as severe, with intensity rated at 9. Quality is described as aching, and is localized to the left and upper extremity. Patient distal (into LUE). Patient started experiencing this week(s) and it has been constant. Immobilization improves symptom(s), Movement worsens symptoms . Patient notes chest pain (has improving left sided chest pain from fall as well), malaise (chronic, patient has known hx of ca) and shortness of breath (reports chronic, unchanged); denies cough, diaphoresis, fever/chills, headaches, nausea/vomiting and rash. Patient did receive the following treatments prior to arrival, none Related Data Home Medications Medication Instructions Recorded Confirmed Lupron Depot 7.5 mg IM ONCE 07/07/16 03/24/19 nitroglycerin 0.4 mg sublingual 0.4 mg SL Q5-15M PRN #10 tab 11/05/18 03/24/19 tablet cabazitaxel 10 mg/mL (first IV ml 01/07/19 03/04/19 dilution) intravenous solution carboplatin 10 mg/mL intravenous IV ml 01/07/19 03/04/19 solution loperamide 2 mg capsule 2 mg PO Q1-4H PRN 01/07/19 03/24/19 prednisone 10 mg tablet 10 mg PO DAILY 01/07/19 03/24/19 acetaminophen 500 mg tablet 500 mg PO Q6H PRN 03/04/19 03/24/19 ibuprofen [IBU-200] 400 mg PO Q6H PRN 03/24/19 03/24/19 lidocaine [Lidoderm] 1 patch TP DAILY #15 each 03/24/19 naloxone [Narcan] 1 spray THIAGO ONCE PRN #2 each 03/24/19 oxycodone 5 mg PO Q6H PRN #10 tab 03/24/19 Previous Rx's Medication Instructions Recorded nitroglycerin 0.4 mg sublingual 0.4 mg SL Q5-15M PRN #10 tab 11/05/18 tablet lidocaine [Lidoderm] 1 patch TP DAILY #15 each 03/24/19 naloxone [Narcan] 1 spray THIAGO ONCE PRN #2 each 03/24/19 oxycodone 5 mg PO Q6H PRN #10 tab 03/24/19 Allergies Allergy/AdvReac Type Severity Reaction Status Date / Time Penicillins Allergy Unknown Verified 03/24/19 10:24 aspirin AdvReac Verified 03/24/19 10:24 NSAIDS (Non-Steroidal AdvReac Verified 03/24/19 10:24 Anti-Inflamma General Stated Complaint: Orthopedic MELISSA: 3 Review of Systems Constitutional Reports as per HPI, Denies chills, Denies fever(s), Denies headache(s) and Denies weakness ENT Denies headache(s) and Denies neck pain Cardiovascular Reports as per HPI Respiratory Reports as per HPI and Denies cough Musculoskeletal Reports as per HPI, Reports abnormal gait (baseline patient has foot drop), Denies back pain, Denies deformity, Denies joint swelling, Reports limited range of motion, Denies neck pain and Reports numbness (chronic neuropathy, unchanged) Integumentary/Breasts Reports as per HPI, Denies rash and Denies wounds Neurologic Reports as per HPI, Reports abnormal gait (baseline patient has foot drop), Denies headache(s), Reports numbness (chronic neuropathy, unchanged), Denies paresthesias and Denies weakness PFSH Medical History Ataxia (Chronic) Cervical myelopathy (Chronic 09/09/15) 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) Dysphagia (Chronic) Foot drop, 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) Metastatic cancer to bone (Chronic 07/07/16) Palliative care patient (Chronic 12/06/16) Prostate cancer metastatic to multiple sites (Chronic 07/07/16) Quadriplegia, C5-C7 incomplete (Chronic 09/09/15) Stress due to family tension (Chronic) Surgical History History of prostate biopsy (Chronic) Total knee replacement status (Chronic) Social History Smoking/Tobacco Use Status: Current-Occasional Tobacco Type: cigarettes Alcohol Intake: current Drug use: Rarely Caregiver/Support person: No Household members: other Details: son Darci back temporarily from rehab stint Housing: house Number of Children: 3 number of grandchildren: 4 Education Level: college Do you need help understanding health information?: Rarely current occupation: retired Pets and animals: Yes What is your relationship status?: How often do you talk on the phone with friends or family?: three or more times per week How often do you get together with friends or relatives?: three or more times per week Panel score (0-1 are the most socially isolated patients): 1 What type of physical activity do you participate in: walking and irregular exercise Duration: 15-30 minutes/day Special celso needs: No Agree to transfusion: Yes Do you feel safe at home: Yes Do you feel safe in your relationship?: Yes Additional Social history: son Darci back home; he struggles with IVDU, primarily heroin. Very stressful for Earl to have him at home. Worries about him. Encouraged Earl to get back riding his horse, if possible. He is afraid of falling off. Discussed therapeutic riding stable in [place]. Exam Const General: cooperative, healthy appearing, comfortable, no acute distress, well developed and well groomed Nutritional Appearance: average body habitus and well nourished Orientation: alert and awake Neck Neck: normal visual inspection, full ROM, no lymphadenopathy and no meningeal signs Chest Chest: normal inspection of the chest, normal palpation of entire chest wall, no crepitus, no localized rib tenderness and no tenderness Resp Effort & Inspection: normal respiratory effort, able to speak in complete sentences and no respiratory distress Auscultation: clear to auscultation bilaterally, no crackles, no rales, no rhonchi and no wheezes Cardio Rate: regular rate Rhythm: regular rhythm Heart Sounds: murmur systolic Back/Spine/Pelvis Cervical Spine: normal cervical lordosis and cervical ROM normal Thoracic/Lumbar Spine: thoracic and lumbar spine normal to inspection Skin General skin exam: no rashes or lesions noted Lesions: no lesions Rashes: no rashes Trauma: no lacerations or abrasions Neuro General: alert and awake Cognition: normal cognition Speech: speech normal Gait: antalgic (right foot drop) Motor: muscle tone normal throughout Sensory Exam: no sensory deficits noted Extrem Left upper extremity: normal capillary refill, no joint enlargement, shoulder/upper arm Details: tenderness (diffusely tender, no focal area of pain), axillary nerve sensory function normal and abnormal ROM Details: pain with active ROM Details: in extension and in internal rotation; no swelling, ROM limited, no abrasions, no lacerations and no ecchymosis, elbow/forearm Details: normal to inspection and normal ROM; no tenderness and no swelling, wrist (no snuff box tenderness, no pain with axial loading of thumb) Details: normal to inspection, normal ROM and normal vascular exam; no tenderness, no swelling, no ecchymosis and no crepitus and hand Details: normal to inspection, normal capillary refill, neuromotor exam normal, tenderness (diffuse tenderness, no focal area of pain) and ecchymosis (dorsal aspect of hand); neurosensory exam abnormal (diminished sensation diffusely, patient reports chronic and unchanged) and no lacerations; ROM limited (unable to range left shoulder) and no edema Psych Appearance: grossly normal and well kempt Mental Status: mental status grossly normal Speech and Movement: speech and movement normal Course Vital Signs Temperature 36.3 C L 03/24/19 10:15 Pulse 54 L 03/24/19 10:15 Respiratory Rate 18 03/24/19 10:15 Blood Pressure 120/65 03/24/19 10:15 Pulse Oximetry 98 03/24/19 10:15 Temperature 36.3 C L 03/24/19 10:15 Temperature Source Temporal Artery Scan 03/24/19 10:15 Pulse 54 L 03/24/19 10:15 Respiratory Rate 18 03/24/19 10:15 Respiratory Effort Non-Labored 03/24/19 10:21 Blood Pressure 120/65 03/24/19 10:15 Blood Pressure Position Sitting 03/24/19 10:15 Pulse Oximetry 98 03/24/19 10:15 Oxygen Delivery Method Room Air 03/24/19 10:15 Oxygen Flow Rate 0 03/24/19 10:15 Pain Level 9 03/24/19 10:15
[2019-03-24 10:29] VITALS: TEMP 36.4
[2019-03-24] MEDS: Lidocaine 5% Patch 1 PATCH (10:29)
[2019-03-24] MEDS: Acetaminophen 325 MG TAB (10:29)
[2019-03-24] MEDS: Ibuprofen 600 MG TAB (10:29)
[2019-03-24 12:09] VITALS: BP 127/77; PULSE 51; RESP 16; TEMP 36.6; O2SAT 98
== END 2019-03-24 12:33 | disposition home or self-care (01) ==
PROVIDERS: Emergency Provider Physician Assistant; PCP General Practice
DX: S60.222A Contusion of left hand, initial encounter (principal); S20.212A Contusion of left front wall of thorax, initial encounter; M25.512 Pain in left shoulder; W01.0XXA Fall on same level from slipping, tripping and stumbling without subsequent striking against object, initial encounter; C79.51 Secondary malignant neoplasm of bone; C61 Malignant neoplasm of prostate
CPT/HCPCS: 36415; 80053; 84403; 99284; 71046; 71100; 73030; 73130; 84153; 85025

== ENCOUNTER 2019-03-24 12:52 | Outpatient (CLI) | payer MEDICARE, OTHER, SELFPAY ==
[2019-03-24 13:20] LABS: Abs Immature Grans 0.03 k/cumm (0.0-0.09); Absolute Basophil Count 0.02 k/cumm (0.0-0.2); Absolute Eosinophil Count 0.02 k/cumm (0.0-0.7); Absolute Lymphocyte Count 0.57 k/cumm (1.2-3.4); Absolute Monocyte Count 0.71 k/cumm (0.11-0.7); Absolute Neutrophil Count 5.83 k/cumm (1.2-6.7); Basophils % 0.3; Eosinophils % 0.3; HCT 35.3 % (40.0-50.0); HGB 11.9 g/dL (13.5-17.5); Immature Grans % 0.4; Lymphocytes % 7.9; Mean Corp. HGB Concentration 33.7 g/dL (32.0-36.0); Mean Corpuscular Volume 100.9 fL (80-95); Mean Platelet Volume 8.7 fL (8.0-11.0); Monocytes % 9.9; Neutrophils % 81.2; Platelet Count 241 x1000/uL (130-400); RBC Distribution Width 16.5 % (11.8-14.1); White Blood Cell Count 7.18 k/cumm (4.4-10.8)
[2019-03-24 13:48] LABS: ALT 17 U/L (12-78); AST 36 U/L (15-37); Albumin 3.5 g/dL (3.4-5.0); Alkaline Phosphatase 183 U/L (46-116); Anion Gap 9.1 mmol/L (3-11); BUN 22 mg/dL (7-18); Bilirubin, Total 0.2 mg/dL (0.2-1.0); CO2 25.9 mmol/L (21.0-32.0); CREATININE 0.79 mg/dL (0.70-1.30); Calcium 8.9 mg/dL (8.5-10.1); Chloride 105 mmol/L (98-107); Glucose 84 mg/dL (70-100); Potassium 4.4 mmol/L (3.5-5.1); Sodium 140 mmol/L (136-145)
[2019-03-25 11:13] LABS: PSA, Diagnostic 1044.8 ng/ml (0-6.5)
[2019-03-27 15:41] LABS: Testosterone, Total <7.0 ng/dL (240-950)
== END 2019-03-24 13:12 ==
PROVIDERS: PCP General Practice; Visit Provider Radiology Radiation Oncology
DX: C61 Malignant neoplasm of prostate (principal)
CPT/HCPCS: 36415; 80053; 84403; 84153; 85025

== ENCOUNTER 2019-04-03 08:06 | Outpatient (CLI) | payer MEDICARE, OTHER, SELFPAY ==
[2019-04-03 09:37] LABS: Abs Immature Grans 0.01 k/cumm (0.0-0.09); Absolute Basophil Count 0.02 k/cumm (0.0-0.2); Absolute Eosinophil Count 0.03 k/cumm (0.0-0.7); Absolute Lymphocyte Count 0.52 k/cumm (1.2-3.4); Absolute Monocyte Count 0.44 k/cumm (0.11-0.7); Absolute Neutrophil Count 2.47 k/cumm (1.2-6.7); Basophils % 0.6; Eosinophils % 0.9; HGB 11.6 g/dL (13.5-17.5); Immature Grans % 0.3; Lymphocytes % 14.9; Mean Corp. HGB Concentration 32.2 g/dL (32.0-36.0); Mean Corpuscular Hemoglobin 32.6 pg (27.0-33.0); Mean Corpuscular Volume 101.1 fL (80-95); Mean Platelet Volume 8.5 fL (8.0-11.0); Monocytes % 12.6; Neutrophils % 70.7; Platelet Count 392 x1000/uL (130-400); RBC 3.56 m/cumm (4.50-6.00); RBC Distribution Width 16.1 % (11.8-14.1); White Blood Cell Count 3.49 k/cumm (4.4-10.8)
[2019-04-03 10:15] LABS: ALT 20 U/L (12-78); AST 17 U/L (15-37); Albumin 3.4 g/dL (3.4-5.0); Alkaline Phosphatase 165 U/L (46-116); Anion Gap 9.7 mmol/L (3-11); BUN 21 mg/dL (7-18); Bilirubin, Total 0.2 mg/dL (0.2-1.0); CO2 27.3 mmol/L (21.0-32.0); CREATININE 0.76 mg/dL (0.70-1.30); Calcium 8.8 mg/dL (8.5-10.1); Chloride 103 mmol/L (98-107); Glucose 119 mg/dL (70-100); Sodium 140 mmol/L (136-145); Total Protein 6.8 g/dL (6.4-8.2)
[2019-04-04 11:54] LABS: PSA, Diagnostic 1139.6 ng/ml (0-6.5)
[2019-04-05 16:52] LABS: Testosterone, Total <7.0 ng/dL (240-950)
== END 2019-04-03 08:26 ==
PROVIDERS: Radiology Radiation Oncology; PCP General Practice; Visit Provider Internal Medicine
DX: C61 Malignant neoplasm of prostate (principal)
CPT/HCPCS: 36415; 80053; 84403; 84153; 85025

== ENCOUNTER 2019-04-14 11:32 | Emergency (ER) | payer MEDICARE, OTHER, SELFPAY ==
[2019-04-14] VITALS (22 sets, daily range): BP systolic 98–122; BP diastolic 49–62; PULSE 46–61; RESP 11–26; TEMP 36.6; O2SAT 93–98
--- NOTE | 2019-04-14 12:08 | DI.COMBO_ITS ---
SYMPTOM/DIAGNOSIS: CHEST PAIN, SOB, COUGH, ELEVATED D DIMER PA AND LATERAL CHEST: Comparison is made with 03/24/19. There is a patchy infiltrate seen on the lateral view, not present on the previous exam. Diffuse bony sclerotic lesions are again noted. The heart size is within normal limits, unchanged. Coronary artery stents are seen. IMPRESSION: Basilar infiltrate. PE CHEST CT: CT angiography was performed with multi slice acquisition and multi planar and 3D reconstruction. Comparison is made with 01/28/19. There is a patchy infiltrate seen in the left lower lobe inferiorly, above the diaphragm. There is some bronchial thickening. Dependent changes are seen at the right lung base. There are underlying emphysematous changes and stable bilateral upper lobe scarring. There is no evidence of pulmonary emboli or aortic dissection. There are no pleural or pericardial effusions. No adenopathy is seen. There are diffuse bony sclerotic bony metastases. IMPRESSION: Left lower lobe pneumonia. No evidence of pulmonary emboli. Sclerotic bony metastases.
--- NOTE | 2019-04-14 12:38 | ED.GENADUL_ITS ---
Discharge Plan Disposition Patient Disposition: HOME Condition: Stable Discharge Details Chief Complaint: RespSymp Clinical Impression: Pneumonia, Anemia Primary Care Provider: Emigdio Gunn ED Provider: Dahiana Daniels Home Meds and New Rx's Prescriptions: New doxycycline hyclate 100 mg capsule 100 mg PO BID Qty: 19 RF: 0 Continued acetaminophen [Acetaminophen Extra Strength] 500 mg tablet 500 mg PO Q6H PRNRF: 0 meloxicam [Mobic] 15 mg tablet 15 mg PO DAILY Qty: 30 RF: 0 nitroglycerin 0.4 mg tablet, sublingual 0.4 mg SL Q5-15M PRN (Reason: chest pain) Qty: 10 RF: 1 prednisone 10 mg tablet 10 mg PO DAILY RF: 0 loperamide [Imodium A-D] 2 mg capsule 2 mg PO Q1-4H PRNRF: 0 cabazitaxel 10 mg/mL (first dilution) solution IV RF: 0 carboplatin 10 mg/mL solution IV RF: 0 Lupron Depot 7.5 MG syringe kit 7.5 mg IM ONCE RF: 0 lidocaine [Lidoderm] 5 % adhesive patch,medicated 1 patch TP DAILY Qty: 15 RF: 0 No Action oxycodone [OxyContin] 10 mg tablet,oral only,ext.rel.12 hr 10 mg PO TID PRN MDD 30 mg Qty: 90 RF: 0 Hold Instructions: Home Medication placed on hold at Doctor's office Narcan 4 mg/actuation spray,non-aerosol 4 mg THIAGO Q2M Qty: 2 RF: 2 oxycodone 5 mg tablet 5 mg PO Q6H MDD 4 PRN (Reason: pain) Qty: 56 RF: 0 fentanyl 12 mcg/hr patch 72 hour 1 patch TD Q72H MDD 24 Qty: 5 RF: 0 Discharge Instructions Instructions: Doxycycline (By mouth), Anemia (ED), Pneumonia (ED) Additional Instructions: Please return immediately to the emergency department if you develop any new or worsening symptoms or if you become otherwise concerned. It is extremely important that you call soon as possible to make an appointment to be seen in follow-up for this visit by your primary care doctor. Please attend your appointment on as scheduled with your radiation oncologist. 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 On exam patient is thin but well and nontoxic appearing. Systolic murmur, lungs clear to auscultation. Pain somewhat reproduced with palpation of the sternum. No crepitus or deformity noted, no focal tenderness. Abdominal exam is benign. No posterior calf tenderness or edema. Concern for pneumonia versus pulmonary embolism versus pain secondary to metastatic disease, possible neutropenia, anemia, metabolic/lyte disturbance. Doubt ACS. Plan for EKG, chest x-ray, screening labs, IV fluid hydration. Will monitor and reassess. D-dimer greater than 2900. Plan for CTA chest for rule out PE. CT chest negative for PE, confirms PNA seen on CXR. I discussed Pt presentation, results with Pt's oncologist, who agreed with plan for outpt management with doxycycline, will see Pt in f/u. On reassessment patient reports that he feels improved and is ready to go home at this time. I had a lengthy discussion with the patient regarding return to emergency department precautions, home care, and importance of outpatient follow-up. Patient verbalized understanding of the plan and was amenable. All questions were answered. Patient was discharged home with clear plan for outpatient follow-up. Medical Records Medical records reviewed: Yes I reviewed the patient's medical records. Imaging Data Radiologic Study: Attestation: I personally reviewed and interpreted this imaging study as follows: Radiologist's impression: PA AND LATERAL CHEST: Comparison is made with 03/24/19. There is a patchy infiltrate seen on the lateral view, not present on the previous exam. Diffuse bony sclerotic lesions are again noted. The heart size is within normal limits, unchanged. Coronary artery stents are seen. IMPRESSION: Basilar infiltrate. PE CHEST CT: CT angiography was performed with multi slice acquisition and multi planar and 3D reconstruction. Comparison is made with 01/28/19. There is a patchy infiltrate seen in the left lower lobe inferiorly, above the diaphragm. There is some bronchial thickening. Dependent changes are seen at the right lung base. There are underlying emphysematous changes and stable bilateral upper lobe scarring. There is no evidence of pulmonary emboli or aortic dissection. There are no pleural or pericardial effusions. No adenopathy is seen. There are diffuse bony sclerotic bony metastases. IMPRESSION: Left lower lobe pneumonia. No evidence of pulmonary emboli. Sclerotic bony metastases. Lab Data Lab results reviewed: Yes I reviewed the patient's lab results. 04/14/19 12:59 Blood Blood Culture - Final NO GROWTH 120 HOURS 04/14/19 13:10 Blood Blood Culture - Final NO GROWTH 120 HOURS Laboratory Tests Range/Units 04/14/19 04/14/19 04/14/19 12:35 12:35 12:35 WBC (4.4-10.8) k/cumm 11.30 H RBC (4.50-6.00) m/cumm 3.11 L Hgb (13.5-17.5) g/dL 10.2 L Hct (40.0-50.0) % 31.2 L MCV (80-95) fL 100.3 H MCH (27.0-33.0) pg 32.8 MCHC (32.0-36.0) g/dL 32.7 RDW (11.8-14.1) % 16.6 H Plt Count (130-400) x1000/uL 273 D MPV (8.0-11.0) fL 9.1 Immature Gran % 0.0 Neutrophils % 82.0 Band Neutrophils % % 12.0 Lymphocytes % 3.0 Monocytes % 3.0 Eosinophils % 0.0 Basophils % 0.0 Absolute Neutrophils (1.2-6.7) k/cumm 10.62 H Absolute Lymphocytes (1.2-3.4) k/cumm 0.34 L Absolute Monocytes (0.11-0.7) k/cumm 0.34 Absolute Eosinophils (0.0-0.7) k/cumm 0.00 Absolute Basophils (0.0-0.2) k/cumm 0.00 Differential Comment Manual differential RBC Morphology See below Polychromasia Present Anisocytosis 1+ D-Dimer (<500) ng/mlFEU Sodium (136-145) mmol/L 137 Potassium (3.5-5.1) mmol/L 4.4 Chloride (98-107) mmol/L 101 Carbon Dioxide (21.0-32.0) mmol/L 26.0 Anion Gap (3-11) mmol/L 10.0 BUN (7-18) mg/dL 24 H Creatinine (0.70-1.30) mg/dL 0.98 Estimated GFR/1.73 m2 (mL/min/1.73m2) >= 60.00 Glucose (70-100) mg/dL 172 H Lactate (0.6-1.4) mmol/L 1.4 Calcium (8.5-10.1) mg/dL 8.4 L Total Bilirubin (0.2-1.0) mg/dL 0.4 AST (15-37) U/L 13 L ALT (16-63) U/L 21 Alkaline Phosphatase (46-116) U/L 204 H Troponin I (0.00-0.06) ng/mL < 0.05 NT-Pro-B Natriuret Pep ( - 299) pg/mL Total Protein (6.4-8.2) g/dL 6.7 Albumin (3.4-5.0) g/dL 3.0 L Lipase (73-393) U/L 54 L Range/Units 04/14/19 04/14/19 12:35 12:35 WBC (4.4-10.8) k/cumm RBC (4.50-6.00) m/cumm Hgb (13.5-17.5) g/dL Hct (40.0-50.0) % MCV (80-95) fL MCH (27.0-33.0) pg MCHC (32.0-36.0) g/dL RDW (11.8-14.1) % Plt Count (130-400) x1000/uL MPV (8.0-11.0) fL Immature Gran % Neutrophils % Band Neutrophils % % Lymphocytes % Monocytes % Eosinophils % Basophils % Absolute Neutrophils (1.2-6.7) k/cumm Absolute Lymphocytes (1.2-3.4) k/cumm Absolute Monocytes (0.11-0.7) k/cumm Absolute Eosinophils (0.0-0.7) k/cumm Absolute Basophils (0.0-0.2) k/cumm Differential Comment RBC Morphology Polychromasia Anisocytosis D-Dimer (<500) ng/mlFEU 2906 H Sodium (136-145) mmol/L Potassium (3.5-5.1) mmol/L Chloride (98-107) mmol/L Carbon Dioxide (21.0-32.0) mmol/L Anion Gap (3-11) mmol/L BUN (7-18) mg/dL Creatinine (0.70-1.30) mg/dL Estimated GFR/1.73 m2 (mL/min/1.73m2) Glucose (70-100) mg/dL Lactate (0.6-1.4) mmol/L Calcium (8.5-10.1) mg/dL Total Bilirubin (0.2-1.0) mg/dL AST (15-37) U/L ALT (16-63) U/L Alkaline Phosphatase (46-116) U/L Troponin I (0.00-0.06) ng/mL NT-Pro-B Natriuret Pep ( - 299) pg/mL 638 H Total Protein (6.4-8.2) g/dL Albumin (3.4-5.0) g/dL Lipase (73-393) U/L ECG Data Attestation: I personally reviewed and interpreted this ECG (s) as follows: Interpretation: EKG shows sinus bradycardia at 53, normal axis, poor R wave p rogression, no STEMI, nondiagnostic EKG HPI General Mode of arrival: ambulatory . Date/Time Provider Initiated Documentation: 04/14/19 11:48 . Limitations to Documentation: no limitations . Information obtained by: patient, RN notes reviewed and old records reviewed . 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 Patient reports that he is currently undergoing chemotherapy, with last chemotherapy session 04/03. Patient also received Neulasta around that time. Patient reports that he has been having chest pain for 3 weeks. He has not yet had radiation to the chest although he he is scheduled for radiation to the chest in 3 days; Pt states this was initially scheduled to ameliorate pain related to metastatic disease. Patient reports that chest pain feels like a broken bone. He reports that he does not have pain when he rests and is very still, but pain returns with any change in position or deep breathing. Patient reports that pain has been unchanged since onset 3 weeks ago. Pain is nonexertional. Patient reports that over the past 3 to 4 days he has developed significant rhinorrhea with postnasal drip and cough productive of clear phlegm. He reports that he feels more short of breath than usual over the past 1 to 2 weeks or so. Patient reports subjective fevers and chills. He denies any other pain. He denies vomiting, numbness, weakness. Patient reports chronic diarrhea that is currently improved since he has been using opiate pain medication at home. He reports chronically poor appetite. Related Data Home Medications Medication Instructions Recorded Confirmed Lupron Depot 7.5 mg IM ONCE 07/07/16 04/15/19 nitroglycerin 0.4 mg sublingual 0.4 mg SL Q5-15M PRN #10 tab 11/05/18 04/15/19 tablet cabazitaxel 10 mg/mL (first IV ml 01/07/19 04/15/19 dilution) intravenous solution carboplatin 10 mg/mL intravenous IV ml 01/07/19 04/15/19 solution loperamide 2 mg capsule 2 mg PO Q1-4H PRN 01/07/19 04/15/19 prednisone 10 mg tablet 10 mg PO DAILY 01/07/19 04/15/19 acetaminophen 500 mg tablet 500 mg PO Q6H PRN 03/04/19 04/15/19 lidocaine [Lidoderm] 1 patch TP DAILY #15 each 03/24/19 04/15/19 meloxicam 15 mg tablet 15 mg PO DAILY #30 tab 03/26/19 04/15/19 doxycycline hyclate 100 mg PO BID #19 cap 04/14/19 04/15/19 naloxone 4 mg/actuation nasal spray 4 mg THIAGO Q2M #2 each 04/15/19 04/15/19 oxycodone 10 mg tablet,crush 10 mg PO TID PRN #90 tab MDD 30 mg 04/15/19 04/15/19 resistant,extended release 12 hr oxycodone 5 mg tablet 5 mg PO Q6H PRN #56 tab MDD 4 04/24/19 fentanyl 12 mcg/hr transdermal 1 patch TD Q72H #5 each MDD 24 05/02/19 patch Previous Rx's Medication Instructions Recorded nitroglycerin 0.4 mg sublingual 0.4 mg SL Q5-15M PRN #10 tab 11/05/18 tablet lidocaine [Lidoderm] 1 patch TP DAILY #15 each 03/24/19 meloxicam 15 mg tablet 15 mg PO DAILY #30 tab 03/26/19 doxycycline hyclate 100 mg PO BID #19 cap 04/14/19 naloxone 4 mg/actuation nasal spray 4 mg THIAGO Q2M #2 each 04/15/19 oxycodone 10 mg tablet,crush 10 mg PO TID PRN #90 tab MDD 30 mg 04/15/19 resistant,extended release 12 hr oxycodone 5 mg tablet 5 mg PO Q6H PRN #56 tab MDD 4 04/24/19 fentanyl 12 mcg/hr transdermal 1 patch TD Q72H #5 each MDD 24 05/02/19 patch Allergies Allergy/AdvReac Type Severity Reaction Status Date / Time Penicillins Allergy Unknown Verified 03/24/19 10:24 aspirin AdvReac Verified 03/24/19 10:24 lisinopril AdvReac Unverified 04/14/19 11:44 NSAIDS (Non-Steroidal AdvReac Verified 03/24/19 10:24 Anti-Inflamma General Stated Complaint: RespSymp MELISSA: 3 Review of Systems Review of Systems Constitutional: reports subjective fevers, chills Eyes: denies eye pain ENT: denies facial pain, dental pain, sore throat, reports nasal congestion Cardiovascular: denies edema, reports chest pain Respiratory: reports SOB, cough GI: denies abdominal pain, vomiting, diarrhea : denies flank pain MSK: denies back pain, neck pain, arthralgias, myalgias Skin: denies rash Neuro: denies headaches, numbness, weakness PFSH Medical History Ataxia (Chronic) Cervical myelopathy (Chronic 09/09/15) 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) Dysphagia (Chronic) Foot drop, 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) Metastatic cancer to bone (Chronic 07/07/16) Palliative care patient (Chronic 12/06/16) Prostate cancer metastatic to multiple sites (Chronic 07/07/16) Quadriplegia, C5-C7 incomplete (Chronic 09/09/15) Stress due to family tension (Chronic) Social History (Updated 04/15/19 @ 21:44 by Etta Ventura MD) Smoking/Tobacco Use Status: Current every day Tobacco Type: cigarettes Alcohol Intake: current Alcohol Intake frequency: 0-2 drinks per day Drug use: Daily Substance use type: marijuana Caregiver/Support person: No Household members: other Details: arleth Bejarano back temporarily from rehab stint Housing: house Number of Children: 3 number of grandchildren: 4 Education Level: college Do you need help understanding health information?: Rarely current occupation: retired Pets and animals: Yes What is your relationship status?: How often do you talk on the phone with friends or family?: three or more times per week How often do you get together with friends or relatives?: three or more times per week Panel score (0-1 are the most socially isolated patients): 1 What type of physical activity do you participate in: walking and irregular exercise Duration: 15-30 minutes/day Special celso needs: No Agree to transfusion: Yes Do you feel safe at home: Yes Do you feel safe in your relationship?: Yes Additional Social history: son Darci back home; he struggles with IVDU, primarily heroin. Very stressful for Earl to have him at home. Worries about him. Encouraged Earl to get back riding his horse, if possible. He is afraid of falling off. Discussed therapeutic riding stable in [place]. Course Vital Signs Temperature 36.6 C 04/14/19 11:36 Pulse 61 04/14/19 11:36 Respiratory Rate 18 04/14/19 11:36 Temperature 36.6 C 04/14/19 11:36 Temperature Source Skin 04/14/19 11:36 Pulse 61 04/14/19 11:36 Respiratory Rate 18 04/14/19 11:36 Respiratory Effort Non-Labored 04/14/19 11:41 Respiratory Depth Normal 04/14/19 11:41 Lab/Test Results Lab/Test Results: 04/14/19 12:08 Blood Blood Culture - Pending 04/14/19 12:08 Blood Blood Culture - Pending
[2019-04-14] MEDS: Normal Saline 1,000 ML 1000 ML IV (12:39)
[2019-04-14 12:48] LABS: Lactate 1.4 mmol/L (0.6-1.4)
[2019-04-14 12:51] LABS: Abs Immature Grans 0.06 k/cumm (0.0-0.09); HCT 31.2 % (40.0-50.0); HGB 10.2 g/dL (13.5-17.5); Mean Corp. HGB Concentration 32.7 g/dL (32.0-36.0); Mean Corpuscular Hemoglobin 32.8 pg (27.0-33.0); Mean Corpuscular Volume 100.3 fL (80-95); Mean Platelet Volume 9.1 fL (8.0-11.0); Platelet Count 273 x1000/uL (130-400); RBC 3.11 m/cumm (4.50-6.00); RBC Distribution Width 16.6 % (11.8-14.1)
[2019-04-14 13:12] LABS: Absolute Lymphocyte Count 0.34 k/cumm (1.2-3.4); Absolute Monocyte Count 0.34 k/cumm (0.11-0.7); Absolute Neutrophil Count 10.62 k/cumm (1.2-6.7); Anisocytosis 1+; Diff Comment Manual Differential
[2019-04-14 13:13] LABS: Polychromasia Present
[2019-04-14 13:14] LABS: NT-proBNP 638 pg/mL
[2019-04-14 13:18] LABS: ALT 21 U/L (16-63); AST 13 U/L (15-37); Alkaline Phosphatase 204 U/L (46-116); BUN 24 mg/dL (7-18); Bilirubin, Total 0.4 mg/dL (0.2-1.0); CREATININE 0.98 mg/dL (0.70-1.30); Calcium 8.4 mg/dL (8.5-10.1); Chloride 101 mmol/L (98-107); Glucose 172 mg/dL (70-100); Lipase 54 U/L (73-393); Potassium 4.4 mmol/L (3.5-5.1); Sodium 137 mmol/L (136-145); Total Protein 6.7 g/dL (6.4-8.2)
[2019-04-14 13:19] LABS: Troponin I < 0.05 ng/mL (0.00-0.06)
[2019-04-14 13:22] LABS: D-Dimer 2906 ng/mlFEU (<500)
--- NOTE | 2019-04-14 13:30 | NUR.NOTE ---
Nursing Note: pt went to x-ray
[2019-04-14] MEDS: Omnipaque 350 MG/ML 100 ML BTL IJ (13:50)
[2019-04-14] MEDS: Normal Saline Flush 10 ML SYR IVP (13:51)
[2019-04-14] MEDS: Doxycycline Hyclate 100 MG CAP PO (15:11)
== END 2019-04-14 15:15 | disposition home or self-care (01) ==
PROVIDERS: Emergency Provider Student in an Organized Health Care Education/Training Program; PCP General Practice
DX: R05 Cough (principal); R07.81 Pleurodynia; R50.9 Fever, unspecified; Z79.899 Other long term (current) drug therapy
CPT/HCPCS: 36415; 71275; 80053; 83690; 87040; 93005; 96360; 99285; 71046; 83605; 83880; 84484; 85025; 85379; 93010; 99281; J3490